=== PATIENT | female | born 1945 | race African-American/Black ===

== ENCOUNTER 2017-05-04 21:49 | Emergency (ER) | payer OTHER ==
[~2017-05-04 21:49] MED LIST: ACTOS30 PO; AMARYL4 PO; AMB10 PO; AMIT10 PO; CO Q-10100 MG PO; DIABETA5 PO; DIOV80 PO; DIOVAN HCT PO; EFFEXXR75 PO; GLUCPH PO; HUMALOG SC; LANTUS SC; MEVACOR PO; MOBIC15 MG PO; NORCO1 TA1 PO; OMNICEF300 PO; PLAQ200B PO; PROAIR HFA INH
== END 2017-05-05 01:06 | disposition home or self-care (01) ==
LOC: ER 21:49
PROC: 0HQKXZZ Repair Right Lower Leg Skin, External Approach (ICD-10-PCS; principal; 2017-05-04)
DX: S81.011A Laceration without foreign body, right knee, initial encounter (principal); F32.9 Major depressive disorder, single episode, unspecified; F41.9 Anxiety disorder, unspecified; Z91.041 Radiographic dye allergy status; Z79.84 Long term (current) use of oral hypoglycemic drugs; Z79.4 Long term (current) use of insulin; Z79.899 Other long term (current) drug therapy; Z79.891 Long term (current) use of opiate analgesic; W25.XXXA Contact with sharp glass, initial encounter
CPT/HCPCS: 73560-RT; 90471; 90714; 99283